=== PATIENT | female | born 1970 | race Caucasian/White ===

== ENCOUNTER 2020-10-07 09:05 | Observation (INO) | payer OTHER ==
[2020-10-07] MEDS ORDERED: SODIUM CHLORIDE 0.9% 500 ML INFUS.BAG IV ONE (09:25)
[2020-10-07 09:45] LABS: BASO % 0.7 % (0-2.0); EOS % 2.6 % (0-4.5); HEMATOCRIT 44.9 % (32.4-45.2); HEMOGLOBIN 15.4 GM/dL (10.7-15.3); LYMPH % 27.5 % (8-40); MCH 30.4 pg (25.7-33.7); MCHC 34.4 g/dl (32.0-36.0); MEAN CELL VOLUME 88.3 fl (80-96); MEAN PLT VOLUME 9.7 fl (7.5-11.1); MONO % 5.5 % (3.8-10.2); NEUT % 63.7 % (42.8-82.8); PLATELET COUNT 204 10^3/uL (134-434); RBC 5.08 M/mm3 (3.60-5.2); RDW 13.9 % (11.6-15.6); WHITE BLOOD COUNT 9.4 K/mm3 (4.0-10.0)
[2020-10-07 10:03] LABS: CHLORIDE 110 mmol/L (98-107); SODIUM 143 mmol/L (136-145)
[2020-10-07 10:06] LABS: ALBUMIN 3.8 g/dl (3.4-5.0); ANION GAP 7 MMOL/L (8-16); CALCIUM 8.6 mg/dL (8.5-10.1); CO2 27 mmol/L (21-32); GLUCOSE,RANDOM 86 mg/dL (74-106); MAGNESIUM 2.2 mg/dL (1.8-2.4)
[2020-10-07 10:07] LABS: BLOOD UREA NITROGEN 11.3 mg/dL (7-18)
[2020-10-07 10:09] LABS: CREATININE 0.7 mg/dL (0.55-1.3); SGOT/AST 25 U/L (15-37); SGPT/ALT 36 U/L (13-61)
[2020-10-07 10:11] LABS: BILIRUBIN,TOTAL 0.6 mg/dL (0.2-1)
[2020-10-07 10:12] LABS: ALK PHOS 110 U/L (45-117)
[2020-10-07] MEDS: LISINOPRIL 20 MG TABLET PO SCH (13:11)
[2020-10-07 14:44] VITALS: BMI 26.9
[2020-10-07] MEDS: ATORVASTATIN CA 80 MG TABLET (FP) PO SCH (21:09)
[2020-10-07] MEDS: HEPARIN NA (PORCINE) 5,000 UNITS/ML 1ML VIAL SQ SCH (21:09)
[2020-10-08 07:09] LABS: HEMATOCRIT 42.2 % (32.4-45.2); HEMOGLOBIN 14.6 GM/dL (10.7-15.3); MCH 30.2 pg (25.7-33.7); MCHC 34.5 g/dl (32.0-36.0); MEAN CELL VOLUME 87.4 fl (80-96); PLATELET COUNT 163 10^3/uL (134-434); RBC 4.83 M/mm3 (3.60-5.2); RDW 14.2 % (11.6-15.6); WHITE BLOOD COUNT 7.8 K/mm3 (4.0-10.0)
[2020-10-08 07:32] LABS: BLOOD UREA NITROGEN 10.8 mg/dL (7-18); CALCIUM 8.8 mg/dL (8.5-10.1)
[2020-10-08 07:35] LABS: CREATININE 0.7 mg/dL (0.55-1.3)
[2020-10-08] MEDS ORDERED: REGADENOSON 0.4 MG/5 ML PRE-FILLED SYRINGE IVPUSH ONE ×3 (10:15→11:45)
[2020-10-08] MEDS: HEPARIN NA (PORCINE) 5,000 UNITS/ML 1ML VIAL SQ SCH ×3 (10:42→21:30)
[2020-10-08] MEDS: ASPIRIN COATED 81 MG TABLET.EC PO SCH ×2 (10:42→14:05)
[2020-10-08] MEDS: PANTOPRAZOLE 20 MG TABLET PO SCH ×2 (10:43→14:05)
[2020-10-08] MEDS: LISINOPRIL 20 MG TABLET PO SCH ×2 (10:43→14:06)
[2020-10-08] MEDS: amLODIPine BESYLATE 5 MG TABLET (FP) PO SCH (17:33)
[2020-10-08] MEDS: ATORVASTATIN CA 80 MG TABLET (FP) PO SCH (21:30)
[2020-10-09] MEDS: LISINOPRIL 20 MG TABLET PO SCH (10:09)
[2020-10-09] MEDS: amLODIPine BESYLATE 5 MG TABLET (FP) PO SCH (10:09)
[2020-10-09] MEDS: ASPIRIN COATED 81 MG TABLET.EC PO SCH (10:09)
[2020-10-09] MEDS: PANTOPRAZOLE 20 MG TABLET PO SCH (10:10)
[2020-10-09] MEDS: HEPARIN NA (PORCINE) 5,000 UNITS/ML 1ML VIAL SQ SCH ×2 (10:10→21:25)
[2020-10-09] MEDS: ATORVASTATIN CA 80 MG TABLET (FP) PO SCH (21:25)
[2020-10-10 09:45] VITALS: PULSE 61
[2020-10-10] MEDS ORDERED: ISOSORBIDE MONONITRATE 30 MG TAB.SR.24H (FP) PO SCH (10:00)
[2020-10-10] MEDS: LISINOPRIL 20 MG TABLET PO SCH (11:23)
[2020-10-10] MEDS: ASPIRIN COATED 81 MG TABLET.EC PO SCH (11:23)
[2020-10-10] MEDS: PANTOPRAZOLE 20 MG TABLET PO SCH (11:24)
[2020-10-10] MEDS: amLODIPine BESYLATE 5 MG TABLET (FP) PO SCH (11:24)
[2020-10-10] MEDS: HEPARIN NA (PORCINE) 5,000 UNITS/ML 1ML VIAL SQ SCH (11:24)
[2020-10-10 15:19] VITALS: BP 146/72; TEMP 98.4
== END 2020-10-10 15:51 | disposition home or self-care (01) ==
LOC: JER 09:05 → INTOOBSV 09:30 → JERBED 09:30 → UNDOADMOB 09:30 → JERBED 13:01 → J4W 13:01 → JERBED 10-08 09:21
PROVIDERS: ADMIT Internal Medicine; ATTEND Family Medicine
PROC: 3E033GC Introduction of Other Therapeutic Substance into Peripheral Vein, Percutaneous Approach (ICD-10-PCS; principal; 2020-10-08)
PROC: 3E0337Z Introduction of Electrolytic and Water Balance Substance into Peripheral Vein, Percutaneous Approach (ICD-10-PCS; 2020-10-08)
DX: I16.0 Hypertensive urgency (principal); R07.9 Chest pain, unspecified; I10 Essential (primary) hypertension; E78.5 Hyperlipidemia, unspecified; F17.210 Nicotine dependence, cigarettes, uncomplicated; R73.03 Prediabetes; Z95.5 Presence of coronary angioplasty implant and graft; N64.4 Mastodynia; Z88.8 Allergy status to other drugs, medicaments and biological substances; I25.2 Old myocardial infarction; I73.9 Peripheral vascular disease, unspecified
CPT/HCPCS: 36415; 71045-TC-FY; 78452-TC; 80048; 80053; 80061; 82550; 83036; 83721; 83735; 84439; 84443; 84484; 85025; 85027; 93005; 93010; 93017; 93306-TC; 96374; 99285-25; A9502; C9803; G0378; J1644; J2785; U0003; U0005

== ENCOUNTER 2020-10-20 15:23 | Emergency (ER) | payer OTHER ==
[2020-10-20 16:01] VITALS: BP 153/68; PULSE 68; TEMP 98.6; BMI 26.6
[2020-10-20] MEDS ORDERED: SODIUM CHLORIDE 0.9% 500 ML INFUS.BAG IV ONE (16:45)
[2020-10-20 17:28] LABS: BASO % 0.4 % (0-2.0); HEMATOCRIT 41.8 % (32.4-45.2); HEMOGLOBIN 14.3 GM/dL (10.7-15.3); LYMPH % 22.3 % (8-40); MCH 29.9 pg (25.7-33.7); MCHC 34.1 g/dl (32.0-36.0); MEAN CELL VOLUME 87.5 fl (80-96); MEAN PLT VOLUME 10.3 fl (7.5-11.1); MONO % 5.2 % (3.8-10.2); NEUT % 69.1 % (42.8-82.8); PLATELET COUNT 214 10^3/uL (134-434); RBC 4.77 M/mm3 (3.60-5.2); RDW 13.9 % (11.6-15.6); WHITE BLOOD COUNT 9.3 K/mm3 (4.0-10.0)
[2020-10-20 17:49] LABS: CHLORIDE 109 mmol/L (98-107); SODIUM 139 mmol/L (136-145)
[2020-10-20 17:52] LABS: ALBUMIN 3.9 g/dl (3.4-5.0); ANION GAP 6 MMOL/L (8-16); BLOOD UREA NITROGEN 12.7 mg/dL (7-18); CALCIUM 8.7 mg/dL (8.5-10.1); CO2 25 mmol/L (21-32); GLUCOSE,RANDOM 114 mg/dL (74-106)
[2020-10-20 17:55] LABS: CREATININE 0.9 mg/dL (0.55-1.3); SGOT/AST 20 U/L (15-37); SGPT/ALT 33 U/L (13-61)
[2020-10-20 17:57] LABS: BILIRUBIN,TOTAL 0.3 mg/dL (0.2-1); TOT PROT 7.1 g/dl (6.4-8.2)
[2020-10-20 17:58] LABS: ALK PHOS 105 U/L (45-117)
[2020-10-20] MEDS ORDERED: ceFAZolin 2 GRAM PREMIX BAG IVPB ONE (18:35)
[2020-10-20] MEDS ORDERED: ACETAMINOPHEN 1000 MG/100 ML VIAL (NON FORMULARY) IVPB ONE (18:55)
[2020-10-20 19:34] LABS: MAGNESIUM 2.1 mg/dL (1.8-2.4)
== END 2020-10-20 20:27 | disposition home or self-care (01) ==
LOC: JER 15:23
PROC: 3E0333Z Introduction of Anti-inflammatory into Peripheral Vein, Percutaneous Approach (ICD-10-PCS; principal; 2020-10-20)
PROC: 3E03329 Introduction of Other Anti-infective into Peripheral Vein, Percutaneous Approach (ICD-10-PCS; 2020-10-20)
DX: M62.838 Other muscle spasm (principal); R20.2 Paresthesia of skin
CPT/HCPCS: 36415; 80053; 82550; 83735; 84484; 85025; 93005; 93010; 99284-25

== ENCOUNTER 2022-12-30 10:44 | Emergency (ER) | payer OTHER ==
[2022-12-30 11:12] VITALS: BP 152/84; PULSE 82; RESP 20; TEMP 99; BMI 29.5
[2022-12-30] MEDS ORDERED: METOCLOPRAMIDE HCL INJECTION 10 MG/2 ML VIAL IVPB ONE (11:48)
[2022-12-30] MEDS ORDERED: ACETAMINOPHEN 1000 MG/100 ML BAG IVPB ONE (11:48)
[2022-12-30] MEDS ORDERED: MECLIZINE HCL 25 MG TABLET (FP) PO ONE (13:06)
[2022-12-30 13:27] LABS: INR 1.4 (0.83-1.09); PROTHROMBIN TIME (PATIENT) 16.2 SEC (9.7-13.0)
[2022-12-30 13:30] LABS: ACTIVATED PTT 36.9 SECONDS (25.2-36.5)
[2022-12-30] MEDS ORDERED: MECLIZINE HCL 25 MG TABLET (FP) ONE (13:45)
[2022-12-30] MEDS ORDERED: METOCLOPRAMIDE HCL INJECTION 10 MG/2 ML VIAL ONE (13:45)
[2022-12-30 13:46] LABS: POTASSIUM 5.2 mmol/L (3.5-5.1)
[2022-12-30 13:48] LABS: BASO % 0.8 % (0-2.0); EOS % 1.9 % (0-4.5); HEMOGLOBIN 14.5 GM/dL (10.7-15.3); LYMPH % 24.5 % (8-40); MCH 30.6 pg (25.7-33.7); MCHC 34.5 g/dl (32.0-36.0); MEAN CELL VOLUME 88.8 fl (80-96); MEAN PLT VOLUME 8.1 fl (7.5-11.1); MONO % 6.5 % (3.8-10.2); NEUT % 66.3 % (42.8-82.8); PLATELET COUNT 239 10^3/uL (134-434); RBC 4.73 M/mm3 (3.60-5.2); RDW 13.7 % (11.6-15.6); WHITE BLOOD COUNT 7.2 K/mm3 (4.0-10.0)
[2022-12-30 13:48] LABS: CALCIUM 9.3 mg/dL (8.5-10.1)
[2022-12-30 13:49] LABS: ALBUMIN 3.8 g/dl (3.4-5.0); BLOOD UREA NITROGEN 18.1 mg/dL (7-18); MAGNESIUM 2.5 mg/dL (1.8-2.4)
[2022-12-30 13:52] LABS: CREATININE 0.8 mg/dL (0.55-1.3)
[2022-12-30 13:53] LABS: BILIRUBIN,TOTAL 0.5 mg/dL (0.2-1); TOT PROT 7.6 g/dl (6.4-8.2)
[2022-12-30] MEDS ORDERED: ACETAMINOPHEN INJECTION 100 ML IVPB ONE (14:05)
== END 2022-12-30 16:45 | disposition home or self-care (01) ==
LOC: JER 10:44
PROC: 3E033NZ Introduction of Analgesics, Hypnotics, Sedatives into Peripheral Vein, Percutaneous Approach (ICD-10-PCS; principal; 2022-12-30)
PROC: 3E033GC Introduction of Other Therapeutic Substance into Peripheral Vein, Percutaneous Approach (ICD-10-PCS; 2022-12-30)
DX: R51.9 Headache, unspecified (principal); R42 Dizziness and giddiness; M79.10 Myalgia, unspecified site; H81.10 Benign paroxysmal vertigo, unspecified ear
CPT/HCPCS: 36415; 70450-TC; 71045-TC-FY; 80053; 83735; 84484; 84703; 85025; 85610; 85730; 93005; 93010; 99285-25

== ENCOUNTER 2023-07-06 22:42 | Observation (INO) | payer OTHER ==
[2023-07-06] MEDS ORDERED: ACETAMINOPHEN INJECTION 100 ML IVPB ONE (23:58)
[2023-07-06] MEDS ORDERED: FAMOTIDINE 20 MG/50 ML IVPB 20 MG/50 ML MG IVPB ONE (23:58)
[2023-07-07] MEDS: ACETAMINOPHEN 1000 MG/100 ML BAG IVPB ONE (00:16)
[2023-07-07 00:18] LABS: BASO % 0.7 % (0-2.0); EOS % 3.3 % (0-4.5); HEMOGLOBIN 13.4 GM/dL (10.7-15.3); MCH 30.9 pg (25.7-33.7); MCHC 33.5 g/dl (32.0-36.0); MEAN CELL VOLUME 92.2 fl (80-96); MEAN PLT VOLUME 8.1 fl (7.5-11.1); MONO % 6.3 % (3.8-10.2); NEUT % 64.7 % (42.8-82.8); PLATELET COUNT 236 10^3/uL (134-434); RBC 4.34 M/mm3 (3.60-5.2); RDW 14.1 % (11.6-15.6); WHITE BLOOD COUNT 8.1 K/mm3 (4.0-10.0)
[2023-07-07 00:20] LABS: INR 1.33 (0.83-1.09); PROTHROMBIN TIME (PATIENT) 14.9 SEC (9.7-13.0)
[2023-07-07 00:22] LABS: ACTIVATED PTT 37.5 SECONDS (25.2-36.5)
[2023-07-07 00:36] LABS: CALCIUM 9.1 mg/dL (8.5-10.1)
[2023-07-07 00:37] LABS: ALBUMIN 3.5 g/dl (3.4-5.0); BLOOD UREA NITROGEN 15.8 mg/dL (7-18); MAGNESIUM 2.3 mg/dL (1.8-2.4)
[2023-07-07 00:40] LABS: CREATININE 1.4 mg/dL (0.55-1.3)
[2023-07-07 00:42] LABS: BILIRUBIN,TOTAL 0.2 mg/dL (0.2-1); TOT PROT 6.8 g/dl (6.4-8.2)
[2023-07-07 00:45] LABS: N-TERMINAL BNP 220.2 pg/ml (5-125)
[2023-07-07] MEDS: FAMOTIDINE 20 MG/50 ML IVPB 20 MG/50 ML MG IVPB ONE (01:15)
[2023-07-07] MEDS: LACTATED RINGERS SOLUTION 1000 ML INFUS.BAG IV ONE (02:12)
[2023-07-07] MEDS: ACETAMINOPHEN 1000 MG/100 ML BAG IVPB PRN (04:22)
[2023-07-07 06:19] LABS: BASO % 0.6 % (0-2.0); EOS % 3.5 % (0-4.5); HEMOGLOBIN 12.8 GM/dL (10.7-15.3); LYMPH % 30.4 % (8-40); MCH 30.7 pg (25.7-33.7); MCHC 33.6 g/dl (32.0-36.0); MEAN CELL VOLUME 91.4 fl (80-96); MEAN PLT VOLUME 8.2 fl (7.5-11.1); MONO % 5.8 % (3.8-10.2); NEUT % 59.7 % (42.8-82.8); PLATELET COUNT 218 10^3/uL (134-434); RBC 4.16 M/mm3 (3.60-5.2); RDW 13.9 % (11.6-15.6); WHITE BLOOD COUNT 6.5 K/mm3 (4.0-10.0)
[2023-07-07 06:34] LABS: POTASSIUM 3.9 mmol/L (3.5-5.1)
[2023-07-07 06:38] LABS: CALCIUM 9.2 mg/dL (8.5-10.1)
[2023-07-07 06:39] LABS: ALBUMIN 3.4 g/dl (3.4-5.0); BLOOD UREA NITROGEN 16.9 mg/dL (7-18); MAGNESIUM 2.2 mg/dL (1.8-2.4)
[2023-07-07 06:42] LABS: CREATININE 1.2 mg/dL (0.55-1.3); PHOSPHOROUS 4.6 mg/dL (2.5-4.9)
[2023-07-07 06:43] LABS: BILIRUBIN,TOTAL 0.2 mg/dL (0.2-1); TOT PROT 6.4 g/dl (6.4-8.2)
[2023-07-07] MEDS ORDERED: FUROSEMIDE 20 MG TABLET (FP) PO SCH (10:00)
[2023-07-07] MEDS ORDERED: ACETAMINOPHEN INJECTION 100 ML IVPB ONE (10:11)
[2023-07-07 13:05] VITALS: RESP 18
[2023-07-07] MEDS ORDERED: metoPROLOL SUCCINATE 25 MG TAB.SR.24H (FP) PO ONE (13:08)
[2023-07-07] MEDS ORDERED: ASPIRIN COATED 81 MG TABLET.EC ONE (13:08)
[2023-07-07] MEDS ORDERED: PANTOPRAZOLE 20 MG TABLET PO ONE (13:08)
[2023-07-07] MEDS ORDERED: APIXABAN 5 MG TABLET ONE (13:08)
[2023-07-07] MEDS ORDERED: SPIRONOLACTONE 25 MG TABLET ONE (13:09)
[2023-07-07] MEDS ORDERED: ISOSORBIDE MONONITRATE 30 MG TAB.SR.24H (FP) PO ONE (13:09)
[2023-07-07] MEDS ORDERED: SACUBITRIL/VALSARTAN 49 MG-51 MG TABLET ONE (13:09)
[2023-07-07] MEDS: SPIRONOLACTONE 25 MG TABLET PO SCH (13:28)
[2023-07-07] MEDS: SACUBITRIL/VALSARTAN 49 MG-51 MG TABLET PO SCH (13:29)
[2023-07-07] MEDS: ASPIRIN COATED 81 MG TABLET.EC PO SCH (13:29)
[2023-07-07] MEDS: APIXABAN 5 MG TABLET PO SCH (13:29)
[2023-07-07] MEDS: EZETIMIBE 10 MG TABLET (FP) PO SCH (13:30)
[2023-07-07] MEDS: ISOSORBIDE MONONITRATE 30 MG TAB.SR.24H (FP) PO SCH (13:30)
[2023-07-07] MEDS: PANTOPRAZOLE 20 MG TABLET PO SCH (13:30)
[2023-07-07] MEDS: LETROZOLE 2.5 MG TABLET (FP) PO SCH (13:30)
[2023-07-07 14:16] VITALS: BMI 30.8
[2023-07-07] MEDS: ATORVASTATIN CA 80 MG TABLET (FP) PO SCH (23:43)
[2023-07-08] MEDS: FUROSEMIDE 20 MG TABLET (FP) PO SCH (10:13)
[2023-07-08 12:07] LABS: BASO % 0.4 % (0-2.0); EOS % 3.6 % (0-4.5); HEMATOCRIT 38.3 % (32.4-45.2); HEMOGLOBIN 13.1 GM/dL (10.7-15.3); LYMPH % 22.8 % (8-40); MCH 31.1 pg (25.7-33.7); MCHC 34.2 g/dl (32.0-36.0); MEAN CELL VOLUME 90.9 fl (80-96); MEAN PLT VOLUME 7.9 fl (7.5-11.1); MONO % 6.1 % (3.8-10.2); NEUT % 67.1 % (42.8-82.8); PLATELET COUNT 205 10^3/uL (134-434); RBC 4.21 M/mm3 (3.60-5.2); RDW 14.3 % (11.6-15.6); WHITE BLOOD COUNT 5.7 K/mm3 (4.0-10.0)
[2023-07-08 12:36] LABS: CHLORIDE 106 mmol/L (98-107); POTASSIUM 4.3 mmol/L (3.5-5.1); SODIUM 136 mmol/L (136-145)
[2023-07-08 12:38] LABS: ALBUMIN 3.4 g/dl (3.4-5.0)
[2023-07-08 12:39] LABS: CALCIUM 9.4 mg/dL (8.5-10.1)
[2023-07-08 12:40] LABS: ALBUMIN 3.5 g/dl (3.4-5.0); AMYLASE 62 U/L (25-115); ANION GAP 2 mmol/L (4-13); CO2 29 mmol/L (21-32); GLUCOSE,RANDOM 112 mg/dL (74-106)
[2023-07-08 12:41] LABS: BILIRUBIN,DIRECT 0.1 mg/dL (0.0-0.2)
[2023-07-08 12:42] LABS: CREATININE 0.9 mg/dL (0.55-1.3); SGOT/AST 18 U/L (15-37)
[2023-07-08 12:43] LABS: BILIRUBIN,TOTAL 0.4 mg/dL (0.2-1); SGPT/ALT 35 U/L (13-61); TOT PROT 6.4 g/dl (6.4-8.2)
[2023-07-08 12:44] LABS: BILIRUBIN,TOTAL 0.4 mg/dL (0.2-1); TOT PROT 6.4 g/dl (6.4-8.2)
[2023-07-08 12:45] LABS: ALK PHOS 91 U/L (45-117)
[2023-07-09 08:49] LABS: ALBUMIN 3.3 g/dl (3.4-5.0)
[2023-07-09 08:52] LABS: BILIRUBIN,DIRECT 0.1 mg/dL (0.0-0.2)
[2023-07-09 08:54] LABS: BILIRUBIN,TOTAL 0.5 mg/dL (0.2-1)
[2023-07-09 08:56] LABS: TOT PROT 6.3 g/dl (6.4-8.2)
[2023-07-09] MEDS: ISOSORBIDE MONONITRATE 30 MG TAB.SR.24H (FP) PO SCH (10:28)
[2023-07-09 14:38] VITALS: BP 113/58; PULSE 65; TEMP 98.4
== END 2023-07-09 16:46 | disposition home or self-care (01) ==
LOC: JER 22:42 → JERBED 07-07 03:21 → J5S 07-07 14:08
PROVIDERS: ADMIT Internal Medicine; ATTEND Internal Medicine
PROC: 3E033NZ Introduction of Analgesics, Hypnotics, Sedatives into Peripheral Vein, Percutaneous Approach (ICD-10-PCS; principal; 2023-07-07)
PROC: 3E033GC Introduction of Other Therapeutic Substance into Peripheral Vein, Percutaneous Approach (ICD-10-PCS; 2023-07-07)
PROC: 3E0337Z Introduction of Electrolytic and Water Balance Substance into Peripheral Vein, Percutaneous Approach (ICD-10-PCS; 2023-07-07)
DX: I25.10 Atherosclerotic heart disease of native coronary artery without angina pectoris (principal); I11.0 Hypertensive heart disease with heart failure; N17.9 Acute kidney failure, unspecified; I73.9 Peripheral vascular disease, unspecified; I25.2 Old myocardial infarction; Z95.810 Presence of automatic (implantable) cardiac defibrillator; Z85.3 Personal history of malignant neoplasm of breast; Z88.8 Allergy status to other drugs, medicaments and biological substances; Z79.01 Long term (current) use of anticoagulants; Z95.5 Presence of coronary angioplasty implant and graft
CPT/HCPCS: 36415; 71045-TC-FY; 74177-TC; 74178-TC; 76705-TC; 78226-TC; 80053; 80076; 82150; 82248; 82550; 83036; 83690; 83735; 83880; 84100; 84484; 85025; 85379; 85610; 85730; 86140; 93005; 93010; 93306-TC; 96365; 96375; 96376; 99285-25; A9537; G0378; J0131; Q9967

== ENCOUNTER 2023-09-21 21:23 | Observation (INO) | payer OTHER ==
[2023-09-21 22:59] LABS: BASO % 0.8 % (0-2.0); EOS % 3.9 % (0-4.5); HEMATOCRIT 39.2 % (32.4-45.2); HEMOGLOBIN 13.5 GM/dL (10.7-15.3); LYMPH % 29.6 % (8-40); MCH 31.4 pg (25.7-33.7); MCHC 34.5 g/dl (32.0-36.0); MEAN CELL VOLUME 91.2 fl (80-96); MONO % 7.2 % (3.8-10.2); NEUT % 58.5 % (42.8-82.8); PLATELET COUNT 225 10^3/uL (134-434); RDW 13.9 % (11.6-15.6); WHITE BLOOD COUNT 6.8 K/mm3 (4.0-10.0)
[2023-09-21 23:06] LABS: INR 1.45 (0.83-1.09); PROTHROMBIN TIME (PATIENT) 16.2 SEC (9.7-13.0)
[2023-09-21 23:09] LABS: ACTIVATED PTT 37.6 SECONDS (25.2-36.5)
[2023-09-21 23:17] LABS: POTASSIUM 4.2 mmol/L (3.5-5.1)
[2023-09-21 23:19] LABS: ALBUMIN 3.7 g/dl (3.4-5.0); BLOOD UREA NITROGEN 13.4 mg/dL (7-18); CALCIUM 9.1 mg/dL (8.5-10.1); MAGNESIUM 2.3 mg/dL (1.8-2.4)
[2023-09-21 23:24] LABS: BILIRUBIN,TOTAL 0.3 mg/dL (0.2-1); TOT PROT 7.1 g/dl (6.4-8.2)
[2023-09-21] MEDS ORDERED: ACETAMINOPHEN INJECTION 100 ML IVPB ONE (23:55)
[2023-09-22] MEDS: ACETAMINOPHEN 1000 MG/100 ML BAG IVPB ONE (00:48)
[2023-09-22 06:23] LABS: HEMATOCRIT 38.6 % (32.4-45.2); MCH 31.5 pg (25.7-33.7); MCHC 33.7 g/dl (32.0-36.0); MEAN CELL VOLUME 93.6 fl (80-96); MEAN PLT VOLUME 8.8 fl (7.5-11.1); PLATELET COUNT 196 10^3/uL (134-434); RBC 4.12 M/mm3 (3.60-5.2); RDW 13.7 % (11.6-15.6); WHITE BLOOD COUNT 5.3 K/mm3 (4.0-10.0)
[2023-09-22 06:43] LABS: POTASSIUM 3.8 mmol/L (3.5-5.1)
[2023-09-22 06:46] LABS: ALBUMIN 3.4 g/dl (3.4-5.0); BLOOD UREA NITROGEN 14.8 mg/dL (7-18); CALCIUM 8.6 mg/dL (8.5-10.1)
[2023-09-22 06:48] LABS: CHOLESTEROL 138 mg/dL (50-200)
[2023-09-22 06:49] LABS: CREATININE 0.9 mg/dL (0.55-1.3)
[2023-09-22 06:50] LABS: LDL CHOLESTEROL (ONLY SJRH) 75 mg/dL (5-100)
[2023-09-22 06:51] LABS: BILIRUBIN,TOTAL 0.5 mg/dL (0.2-1); HDL CHOLESTEROL 39 mg/dL (40-60); TOT PROT 6.4 g/dl (6.4-8.2)
[2023-09-22] MEDS: FUROSEMIDE 40 MG/4 ML INJECTABLE VIAL IVPUSH ONE (07:06)
[2023-09-22] MEDS: SPIRONOLACTONE 25 MG TABLET PO SCH (09:09)
[2023-09-22] MEDS: LETROZOLE 2.5 MG TABLET (FP) PO SCH (09:09)
[2023-09-22] MEDS: ISOSORBIDE MONONITRATE 30 MG TAB.SR.24H (FP) PO SCH (09:09)
[2023-09-22] MEDS: APIXABAN 5 MG TABLET PO SCH (09:09)
[2023-09-22] MEDS: ASPIRIN COATED 81 MG TABLET.EC PO SCH (09:09)
[2023-09-22] MEDS: PANTOPRAZOLE 20 MG TABLET PO SCH (09:09)
[2023-09-22] MEDS: SACUBITRIL/VALSARTAN 49 MG-51 MG TABLET PO SCH (09:09)
[2023-09-22 10:10] LABS: EPI CELLS 4 /uL (0-25.1); HYALINE CASTS 0 /uL (0-3.1); PH,URINE 5.5 (5.0-8.0); URINE APPEARANCE CLEAR; URINE BACTERIA 45 /uL (0-1359); URINE BILIRUBIN NEGATIVE (NEGATIVE); URINE COLOR YELLOW; URINE GLUCOSE (UA) NEGATIVE (NEGATIVE); URINE KETONE NEGATIVE (NEGATIVE); URINE LEUK ESTERASE NEGATIVE (NEGATIVE); URINE NITRITE NEGATIVE (NEGATIVE); URINE PROTEIN NEGATIVE (NEGATIVE); URINE RBC 9 /uL (0-23.9); URINE UROBILINOGEN 0.2 mg/dL (0.2-1.0); URINE WBC 5 /uL (0-25.8)
[2023-09-22] MEDS ORDERED: ACETAMINOPHEN 325 MG TABLET (FP) ONE (10:31)
[2023-09-22] MEDS: ACETAMINOPHEN 500 MG TABLET (FP) PO PRN (10:32)
[2023-09-22 18:34] VITALS: BMI 31.1
[2023-09-22] MEDS: ATORVASTATIN CA 80 MG TABLET (FP) PO SCH (22:24)
[2023-09-23 07:48] LABS: HEMATOCRIT 38.2 % (32.4-45.2); HEMOGLOBIN 12.9 GM/dL (10.7-15.3); MCH 31.6 pg (25.7-33.7); MCHC 33.6 g/dl (32.0-36.0); MEAN CELL VOLUME 93.8 fl (80-96); MEAN PLT VOLUME 8.9 fl (7.5-11.1); PLATELET COUNT 205 10^3/uL (134-434); RBC 4.08 M/mm3 (3.60-5.2); RDW 13.7 % (11.6-15.6); WHITE BLOOD COUNT 5.3 K/mm3 (4.0-10.0)
[2023-09-23 08:14] LABS: CALCIUM 9.1 mg/dL (8.5-10.1); POTASSIUM 4.1 mmol/L (3.5-5.1)
[2023-09-23 08:16] LABS: BLOOD UREA NITROGEN 19.4 mg/dL (7-18); MAGNESIUM 2.4 mg/dL (1.8-2.4)
[2023-09-23 08:18] LABS: CREATININE 0.8 mg/dL (0.55-1.3); PHOSPHOROUS 4.2 mg/dL (2.5-4.9)
[2023-09-23] MEDS ORDERED: REGADENOSON 0.4 MG/5 ML PRE-FILLED SYRINGE IVPUSH ONE (10:41)
[2023-09-23] MEDS: REGADENOSON 0.4 MG/5 ML PRE-FILLED SYRINGE IVPUSH ONE (10:55)
[2023-09-23] MEDS: AMINOPHYLLINE 250 MG/10 ML VIAL IVPUSH ONE (11:01)
[2023-09-23] MEDS ORDERED: AMINOPHYLLINE 250 MG/10 ML VIAL ONE (11:37)
[2023-09-23] MEDS: FUROSEMIDE 20 MG TABLET (FP) PO SCH (12:30)
[2023-09-23 15:35] VITALS: BP 118/78; PULSE 58; RESP 20; TEMP 98.3
== END 2023-09-23 19:20 | disposition home or self-care (01) ==
LOC: JER 21:23 → JERBED 09-22 01:11 → J4W 09-22 18:11
PROVIDERS: ADMIT Internal Medicine; ATTEND Internal Medicine
PROC: 3E033GC Introduction of Other Therapeutic Substance into Peripheral Vein, Percutaneous Approach (ICD-10-PCS; principal; 2023-09-22)
PROC: 3E033NZ Introduction of Analgesics, Hypnotics, Sedatives into Peripheral Vein, Percutaneous Approach (ICD-10-PCS; 2023-09-22)
DX: R07.89 Other chest pain (principal); I11.0 Hypertensive heart disease with heart failure; E78.5 Hyperlipidemia, unspecified; Z95.810 Presence of automatic (implantable) cardiac defibrillator; Z95.5 Presence of coronary angioplasty implant and graft; Z79.01 Long term (current) use of anticoagulants; I25.2 Old myocardial infarction; Z87.891 Personal history of nicotine dependence; Z88.8 Allergy status to other drugs, medicaments and biological substances; Z85.3 Personal history of malignant neoplasm of breast
CPT/HCPCS: 0241U-QW; 36415; 71046-TC-FY; 78452-TC; 80048; 80053; 80061; 81003; 83036; 83735; 84100; 84443; 84484; 85025; 85027; 85379; 85610; 85730; 86850; 86900; 86901; 93005; 93010; 93017; 96374; 96375; 99285-25; A9502; G0378; J0131; J2785

== ENCOUNTER 2024-04-29 22:47 | Observation (INO) | payer OTHER ==
[2024-04-29 23:38] LABS: BASO % 1.1 % (0-2.0); EOS % 3.9 % (0-4.5); HEMATOCRIT 39.9 % (32.4-45.2); HEMOGLOBIN 13.7 GM/dL (10.7-15.3); MCH 31.6 pg (25.7-33.7); MCHC 34.3 g/dl (32.0-36.0); MEAN CELL VOLUME 92.2 fl (80-96); MEAN PLT VOLUME 7.9 fl (7.5-11.1); PLATELET COUNT 221 10^3/uL (134-434); RBC 4.33 M/mm3 (3.60-5.2); RDW 14.3 % (11.6-15.6); WHITE BLOOD COUNT 6.4 K/mm3 (4.0-10.0)
[2024-04-29 23:44] LABS: INR 1.34 (0.83-1.09); PROTHROMBIN TIME (PATIENT) 14.6 SEC (9.7-13.0)
[2024-04-29 23:46] LABS: ACTIVATED PTT 35.1 SECONDS (25.2-36.5)
[2024-04-30 00:07] LABS: POTASSIUM 4.2 mmol/L (3.5-5.1)
[2024-04-30 00:09] LABS: ALBUMIN 3.5 g/dl (3.4-5.0); BLOOD UREA NITROGEN 13.4 mg/dL (7-18); CALCIUM 9.2 mg/dL (8.5-10.1)
[2024-04-30 00:10] LABS: MAGNESIUM 2.3 mg/dL (1.8-2.4)
[2024-04-30 00:13] LABS: PHOSPHOROUS 3.8 mg/dL (2.5-4.9)
[2024-04-30 00:14] LABS: BILIRUBIN,TOTAL 0.3 mg/dL (0.2-1); TOT PROT 6.6 g/dl (6.4-8.2)
[2024-04-30 00:18] LABS: N-TERMINAL BNP 207.1 pg/ml (5-125)
[2024-04-30] MEDS ORDERED: ASPIRIN 81 MG CHEWABLE TABLETS ONE (02:24)
[2024-04-30] MEDS: ASPIRIN 81 MG CHEWABLE TABLETS PO ONE (02:27)
[2024-04-30] MEDS ORDERED: MECLIZINE HCL 25 MG TABLET (FP) PO PRN (02:55)
[2024-04-30] MEDS: ACETAMINOPHEN 1000 MG/100 ML BAG IVPB ONE (05:15)
[2024-04-30 06:35] LABS: BASO % 0.8 % (0-2.0); EOS % 3.9 % (0-4.5); HEMATOCRIT 38.9 % (32.4-45.2); LYMPH % 32.9 % (8-40); MCH 31.2 pg (25.7-33.7); MCHC 33.4 g/dl (32.0-36.0); MEAN CELL VOLUME 93.5 fl (80-96); MEAN PLT VOLUME 8.4 fl (7.5-11.1); MONO % 6.7 % (3.8-10.2); NEUT % 55.7 % (42.8-82.8); PLATELET COUNT 217 10^3/uL (134-434); RBC 4.17 M/mm3 (3.60-5.2); RDW 14.2 % (11.6-15.6)
[2024-04-30 06:52] LABS: ALBUMIN 3.4 g/dl (3.4-5.0); CALCIUM 9.2 mg/dL (8.5-10.1)
[2024-04-30 06:53] LABS: BLOOD UREA NITROGEN 15.3 mg/dL (7-18); MAGNESIUM 2.1 mg/dL (1.8-2.4)
[2024-04-30 06:56] LABS: PHOSPHOROUS 4.9 mg/dL (2.5-4.9)
[2024-04-30 06:57] LABS: BILIRUBIN,TOTAL 0.4 mg/dL (0.2-1); TOT PROT 6.2 g/dl (6.4-8.2)
[2024-04-30] MEDS: ASPIRIN COATED 81 MG TABLET.EC PO SCH (10:02)
[2024-04-30] MEDS: APIXABAN 5 MG TABLET PO SCH (10:03)
[2024-04-30] MEDS: CALCIUM 500MG/VIT-D 200 UNITS COMBO TABLET (FP) PO SCH (10:03)
[2024-04-30] MEDS: SACUBITRIL/VALSARTAN 49 MG-51 MG TABLET PO SCH (10:03)
[2024-04-30] MEDS: ISOSORBIDE MONONITRATE 30 MG TAB.SR.24H (FP) PO SCH (10:03)
[2024-04-30] MEDS: FUROSEMIDE 20 MG TABLET (FP) PO SCH (10:03)
[2024-04-30] MEDS: LETROZOLE 2.5 MG TABLET (FP) PO SCH (10:03)
[2024-04-30] MEDS: EZETIMIBE 10 MG TABLET (FP) PO SCH (10:03)
[2024-04-30] MEDS: PANTOPRAZOLE 20 MG TABLET PO SCH (10:03)
[2024-04-30] MEDS ORDERED: ACETAMINOPHEN 325 MG TABLET (FP) ONE (17:28)
[2024-04-30] MEDS: ACETAMINOPHEN 325 MG TABLET (FP) PO PRN (17:30)
[2024-04-30] MEDS ORDERED: ATORVASTATIN CA 80 MG TABLET (FP) ONE (22:00)
[2024-04-30] MEDS ORDERED: APIXABAN 5 MG TABLET ONE (22:00)
[2024-04-30] MEDS ORDERED: SACUBITRIL/VALSARTAN 49 MG-51 MG TABLET ONE (22:03)
[2024-04-30] MEDS: ATORVASTATIN CA 80 MG TABLET (FP) PO SCH (22:08)
[2024-05-01 02:56] VITALS: RESP 18
[2024-05-01] MEDS ORDERED: ACETAMINOPHEN 325 MG TABLET (FP) PO PRN (10:08)
[2024-05-01] MEDS ORDERED: MECLIZINE HCL 25 MG TABLET (FP) PO PRN (10:08)
[2024-05-01 11:40] VITALS: BMI 32.1
[2024-05-01 14:56] VITALS: BP 110/71; PULSE 64; TEMP 97.5
[2024-05-01] MEDS ORDERED: SACUBITRIL/VALSARTAN 49 MG-51 MG TABLET PO SCH (22:00)
[2024-05-01] MEDS ORDERED: ATORVASTATIN CA 80 MG TABLET (FP) PO SCH (22:00)
[2024-05-01] MEDS ORDERED: APIXABAN 5 MG TABLET PO SCH (22:00)
[2024-05-02] MEDS ORDERED: PANTOPRAZOLE 20 MG TABLET PO SCH (10:00)
[2024-05-02] MEDS ORDERED: FUROSEMIDE 20 MG TABLET (FP) PO SCH (10:00)
[2024-05-02] MEDS ORDERED: LETROZOLE 2.5 MG TABLET (FP) PO SCH (10:00)
[2024-05-02] MEDS ORDERED: ISOSORBIDE MONONITRATE 30 MG TAB.SR.24H (FP) PO SCH (10:00)
[2024-05-02] MEDS ORDERED: ASPIRIN COATED 81 MG TABLET.EC PO SCH (10:00)
[2024-05-02] MEDS ORDERED: EZETIMIBE 10 MG TABLET (FP) PO SCH (10:00)
[2024-05-02] MEDS ORDERED: CALCIUM 500MG/VIT-D 200 UNITS COMBO TABLET (FP) PO SCH (10:00)
== END 2024-05-01 16:29 | disposition home or self-care (01) ==
LOC: JER 22:47 → JERBED 23:51 → J7W 05-01 10:12
PROVIDERS: ADMIT Internal Medicine; ATTEND Internal Medicine
PROC: 3E033NZ Introduction of Analgesics, Hypnotics, Sedatives into Peripheral Vein, Percutaneous Approach (ICD-10-PCS; principal; 2024-04-29)
DX: I11.9 Hypertensive heart disease without heart failure (principal); I48.91 Unspecified atrial fibrillation; J45.909 Unspecified asthma, uncomplicated; E78.5 Hyperlipidemia, unspecified; I25.2 Old myocardial infarction; Z85.3 Personal history of malignant neoplasm of breast; Z95.810 Presence of automatic (implantable) cardiac defibrillator; Z87.891 Personal history of nicotine dependence; Z88.8 Allergy status to other drugs, medicaments and biological substances
CPT/HCPCS: 0241U-QW; 36415; 71045-TC-FY; 80053; 82550; 83735; 83880; 84100; 84484; 85025; 85379; 85610; 85730; 93005; 93010; 96374; 99285-25; G0378; J0131